=== PATIENT | male | born 1980 | race Caucasian/White ===

== ENCOUNTER 2021-05-19 18:43 | Emergency (ER) | payer MEDICAID ==
[~2021-05-19] VITALS: Ht 177.8 cm; Wt 84.0 kg
[2021-05-19 19:17] LABS: BASOPHILS % 0.3 % (0.0-2.0); EOSINOPHILS % 0.9 % (0.0-5.0); HEMATOCRIT. 43.4 % (42.0-52.0); HEMOGLOBIN. 14.8 g/dL (14.0-18.0); MEAN CORPUSCULAR HEMOGLOBIN 29.4 pg (28.0-32.0); MEAN CORPUSCULAR VOLUME 86.4 fL (80.0-94.0); MEAN PLATELET VOLUME 7.5 fl (7.4-10.4); MONOCYTES % 9.3 % (2.0-8.0); NEUTROPHILS % 41.5 % (40.0-76.0); PLATELET 180 x1000/uL (130-400); RED BLOOD CELL COUNT 5.03 mill/uL (4.7-6.1); RED CELL DISTRIBUTION WIDTH 13.6 % (11.6-14.6)
[2021-05-19 19:20] LABS: CHLORIDE 108 mEq/L (98-107)
[2021-05-19 22:15] VITALS: BP 118/70
== END 2021-05-19 22:28 | disposition home or self-care (01) ==
LOC: ER 18:43
DX: R07.89 Other chest pain (principal); Z98.890 Other specified postprocedural states
CPT/HCPCS: 36415; 71045; 80053; 84484; 85025; 93005; 93971; 99285